=== PATIENT | female | born 1940 | race Caucasian/White ===

== ENCOUNTER → 2017-03-04 | Outpatient (REF) | payer MEDICARE, OTHER ==
[2017-03-04 12:58] LABS: MEAN CORPUSCULAR HEMOGLOBIN 32.2 pg (27.0-33.0); MEAN CORPUSCULAR HGB CONC 34.8 g/dl (32.0-36.5); MEAN CORPUSCULAR VOLUME 92.5 fl (80.0-96.0); RED CELL DISTRIBUTION WIDTH 12.3 % (11.5-14.5); WHITE BLOOD COUNT 5.4 K/mm3 (4.0-10.0)
[2017-03-04 13:25] LABS: ALBUMIN 3.7 GM/DL (3.2-5.2); ALBUMIN/GLOBULIN RATIO 1.16 (1.00-1.93); ALKALINE PHOSPHATASE 74 U/L (45-117); ALT/SGPT 29 U/L (12-78); ANION GAP 8 MEQ/L (8-16); AST/SGOT 21 U/L (15-37); BILIRUBIN,TOTAL 0.7 MG/DL (0.2-1.0); BLOOD UREA NITROGEN 15 MG/DL (7-18); CALCIUM LEVEL 9.2 MG/DL (8.8-10.2); CARBON DIOXIDE LEVEL 28 MEQ/L (21-32); CHLORIDE LEVEL 102 MEQ/L (98-107); CHOLESTEROL LEVEL 201 MG/DL (<200); CREATININE FOR GFR 0.94 MG/DL (0.55-1.02); FREE T4 1.21 NG/DL (0.76-1.46); GLOMERULAR FILTRATION RATE > 60.0 (>39); GLUCOSE, FASTING 90 MG/DL (83-110); POTASSIUM SERUM 4.2 MEQ/L (3.5-5.1); SODIUM LEVEL 138 MEQ/L (136-145); TOTAL PROTEIN 6.9 GM/DL (6.4-8.2); TRIGLYCERIDES LEVEL 69 MG/DL (<150)
== END ==
LOC: M SFHCADAM 09:05
PROVIDERS: ATTEND Family Medicine
DX: I25.10 Atherosclerotic heart disease of native coronary artery without angina pectoris (principal); E78.2 Mixed hyperlipidemia; E03.9 Hypothyroidism, unspecified; E55.9 Vitamin D deficiency, unspecified

== ENCOUNTER → 2018-04-10 | Outpatient (REF) | payer MEDICARE, OTHER ==
[2018-04-10 12:36] LABS: HEMATOCRIT 43.4 % (36.0-47.0); HEMOGLOBIN 14.6 g/dl (12.0-15.5); MEAN CORPUSCULAR HEMOGLOBIN 30.7 pg (27.0-33.0); MEAN CORPUSCULAR HGB CONC 33.6 g/dl (32.0-36.5); MEAN CORPUSCULAR VOLUME 91.4 fl (80.0-96.0); PLATELET COUNT, AUTOMATED 366 10^3/uL (150-450); RED BLOOD COUNT 4.75 10^6/uL (4.00-5.40); RED CELL DISTRIBUTION WIDTH 12.7 % (11.5-14.5); WHITE BLOOD COUNT 6.2 10^3/uL (4.0-10.0)
[2018-04-10 12:52] LABS: ALBUMIN 3.6 GM/DL (3.2-5.2); ALBUMIN/GLOBULIN RATIO 1.24 (1.00-1.93); ALKALINE PHOSPHATASE 63 U/L (45-117); ALT/SGPT 25 U/L (12-78); ANION GAP 8 MEQ/L (8-16); AST/SGOT 20 U/L (7-37); BILIRUBIN,TOTAL 0.6 MG/DL (0.2-1.0); BLOOD UREA NITROGEN 13 MG/DL (7-18); CALCIUM LEVEL 9.1 MG/DL (8.8-10.2); CARBON DIOXIDE LEVEL 30 MEQ/L (21-32); CHLORIDE LEVEL 105 MEQ/L (98-107); CHOLESTEROL LEVEL 222 MG/DL (<200); CHOLESTEROL RISK RATIO 2.551 (<5); CREATININE FOR GFR 0.96 MG/DL (0.55-1.30); FREE T4 1.15 NG/DL (0.76-1.46); GLOMERULAR FILTRATION RATE > 60.0 (>39); GLUCOSE, FASTING 97 MG/DL (70-100); HDL CHOLESTEROL 87 MG/DL (>40); LDL CHOLESTEROL 122.4 MG/DL (<100); NON-HDL-C 135 MG/DL; POTASSIUM SERUM 4.5 MEQ/L (3.5-5.1); SODIUM LEVEL 143 MEQ/L (136-145); TOTAL PROTEIN 6.5 GM/DL (6.4-8.2); TRIGLYCERIDES LEVEL 63 MG/DL (<150)
== END ==
LOC: M SFHCADAM 09:53
DX: I25.10 Atherosclerotic heart disease of native coronary artery without angina pectoris (principal); G25.81 Restless legs syndrome; I10 Essential (primary) hypertension; E03.9 Hypothyroidism, unspecified; E78.2 Mixed hyperlipidemia
CPT/HCPCS: 84443

== ENCOUNTER → 2019-02-24 | Outpatient (REF) | payer MEDICARE, OTHER ==
[2019-02-24 18:22] LABS: HEMOGLOBIN A1c 5.5 %
[2019-02-24 18:29] LABS: ALBUMIN 3.7 GM/DL (3.2-5.2); BILIRUBIN,TOTAL 0.6 MG/DL (0.2-1.0); CALCIUM LEVEL 9.1 MG/DL (8.8-10.2); CHOLESTEROL RISK RATIO 2.687 (<5); CREATININE FOR GFR 1.02 MG/DL (0.55-1.30); FREE T4 1.35 NG/DL (0.76-1.46); GLOMERULAR FILTRATION RATE 56.1 (>39); POTASSIUM SERUM 4.8 MEQ/L (3.5-5.1); THYROID STIMULATING HORMONE 2.11 uIU/ML (0.358-3.740); TOTAL PROTEIN 6.8 GM/DL (6.4-8.2)
[2019-02-24 18:34] LABS: HEMATOCRIT 44.2 % (36.0-47.0); HEMOGLOBIN 14.3 g/dl (12.0-15.5); MEAN CORPUSCULAR HGB CONC 32.4 g/dl (32.0-36.5); MEAN CORPUSCULAR VOLUME 92.7 fl (80.0-96.0); PLATELET COUNT, AUTOMATED 382 10^3/uL (150-450); RED BLOOD COUNT 4.77 10^6/uL (4.00-5.40); WHITE BLOOD COUNT 6.6 10^3/uL (4.0-10.0)
== END ==
LOC: M SFHCADAM 11:31
PROVIDERS: ATTEND Family Medicine
DX: I25.10 Atherosclerotic heart disease of native coronary artery without angina pectoris (principal); G25.81 Restless legs syndrome; I11.9 Hypertensive heart disease without heart failure; E03.9 Hypothyroidism, unspecified; E74.9 Disorder of carbohydrate metabolism, unspecified; E78.2 Mixed hyperlipidemia; E55.9 Vitamin D deficiency, unspecified

== ENCOUNTER → 2021-03-17 | Outpatient (REF) | payer MEDICARE, OTHER ==
[2021-03-17 16:47] LABS: HEMATOCRIT 44.6 % (36.0-47.0); HEMOGLOBIN 14.7 g/dl (12.0-15.5); PLATELET COUNT, AUTOMATED 386 10^3/uL (150-450)
[2021-03-17 17:24] LABS: ALBUMIN 3.8 GM/DL (3.2-5.2); BILIRUBIN,TOTAL 0.6 MG/DL (0.2-1.0); CALCIUM LEVEL 10.4 MG/DL (8.8-10.2); CHOLESTEROL RISK RATIO 3.324 (<5); CREATININE FOR GFR 0.98 MG/DL (0.55-1.30); FREE T4 1.27 NG/DL (0.76-1.46); GLOMERULAR FILTRATION RATE 58.4 (>39); POTASSIUM SERUM 5.2 MEQ/L (3.5-5.1); THYROID STIMULATING HORMONE 2.37 uIU/ML (0.358-3.740)
== END ==
LOC: M SFHCADAM 14:03
PROVIDERS: ATTEND Family Medicine
DX: I25.10 Atherosclerotic heart disease of native coronary artery without angina pectoris (principal); E78.2 Mixed hyperlipidemia; E03.9 Hypothyroidism, unspecified

== ENCOUNTER → 2023-02-18 | Outpatient (REF) | payer MEDICARE, OTHER ==
[2023-02-18 13:07] LABS: HEMATOCRIT 44.6 % (36.0-47.0); HEMOGLOBIN 14.7 g/dl (12.0-15.5); MEAN CORPUSCULAR HEMOGLOBIN 30.4 pg (27.0-33.0); MEAN CORPUSCULAR VOLUME 92.3 fl (80.0-96.0); PLATELET COUNT, AUTOMATED 337 10^3/uL (150-450); RED BLOOD COUNT 4.83 10^6/uL (4.00-5.40); WHITE BLOOD COUNT 10.6 10^3/uL (4.0-10.0)
[2023-02-18 13:42] LABS: ALBUMIN 3.6 G/DL (3.2-5.2); BILIRUBIN,TOTAL 0.9 MG/DL (0.3-1.2); CALCIUM LEVEL 10.3 MG/DL (8.3-10.6); CHOLESTEROL RISK RATIO 3.03 (<5); CREATININE FOR GFR 0.96 MG/DL (0.55-1.30); FREE T4 1.29 NG/DL (0.89-1.76); GLOMERULAR FILTRATION RATE 59.5 (>32); HDL CHOLESTEROL 69.3 MG/DL (>40); LDL CHOLESTEROL 119.3 MG/DL (<100); NON-HDL-C 140.7 MG/DL; POTASSIUM SERUM 4.8 MMOL/L (3.5-5.1); THYROID STIMULATING HORMONE 0.869 uIU/ML (0.55-4.78); TOTAL 25(OH) VITAMIN D 102.2 NG/ML (20.0-100.0); TOTAL PROTEIN 6.7 G/DL (5.7-8.2)
[2023-02-18 13:49] LABS: HEMOGLOBIN A1c 5.5 % (4.0-6.0)
== END ==
LOC: M SFHCADAM 09:55
PROVIDERS: ATTEND Family Medicine
DX: I11.9 Hypertensive heart disease without heart failure (principal); E78.2 Mixed hyperlipidemia; E74.9 Disorder of carbohydrate metabolism, unspecified; E03.9 Hypothyroidism, unspecified; I25.10 Atherosclerotic heart disease of native coronary artery without angina pectoris; E55.9 Vitamin D deficiency, unspecified

== ENCOUNTER → 2023-02-24 | Outpatient (CLI) | payer MEDICARE, OTHER ==
[~2023-02-24] MED LIST: ISOVUE-370 76% 100ML VIAL As Ordered ONE
[2023-02-24 13:52] LABS: BASO # 0.1 10^3/uL (0.0-0.2); BASO % 0.6 % (0.0-1.0); EOS # 0.2 10^3/uL (0.0-0.5); EOS % 1.9 % (0.0-3.0); HEMATOCRIT 41.6 % (36.0-47.0); HEMOGLOBIN 13.9 g/dl (12.0-15.5); LYMPH # 1.4 10^3/uL (1.5-5.0); LYMPH % 14.2 % (24.0-44.0); MEAN CORPUSCULAR HGB CONC 33.4 g/dl (32.0-36.5); MEAN CORPUSCULAR VOLUME 89.7 fl (80.0-96.0); MONO # 0.7 10^3/uL (0.0-0.8); MONO % 7.5 % (2.0-8.0); NEUTROPHILS # 7.3 10^3/uL (1.5-8.5); NEUTROPHILS % 75.4 % (36.0-66.0); PLATELET COUNT, AUTOMATED 306 10^3/uL (150-450); RED BLOOD COUNT 4.64 10^6/uL (4.00-5.40); WHITE BLOOD COUNT 9.7 10^3/uL (4.0-10.0)
[2023-02-24 14:15] LABS: BLOOD UREA NITROGEN 28 MG/DL (9-23); CARBON DIOXIDE LEVEL 28 MMOL/L (20-31); CHLORIDE LEVEL 100 MMOL/L (98-107); CREATININE FOR GFR 0.94 MG/DL (0.55-1.30); GLOMERULAR FILTRATION RATE > 60.0 (>32); GLUCOSE, FASTING 91 MG/DL (74-106); POTASSIUM SERUM 3.9 MMOL/L (3.5-5.1); SODIUM LEVEL 134 MMOL/L (136-145)
== END ==
LOC: M RAD 12:59
PROVIDERS: ATTEND Family Medicine
DX: M79.89 Other specified soft tissue disorders (principal); I16.0 Hypertensive urgency; I51.7 Cardiomegaly; K44.9 Diaphragmatic hernia without obstruction or gangrene; K57.30 Diverticulosis of large intestine without perforation or abscess without bleeding; R91.1 Solitary pulmonary nodule
CPT/HCPCS: 36415; 71275; 80048; 84484; 85025; 85379; 93971; Q9967

== ENCOUNTER → 2024-02-23 | Outpatient (REF) | payer MEDICARE, OTHER ==
[2024-02-23 14:12] LABS: HEMOGLOBIN A1c 5.4 % (4.0-6.0)
[2024-02-23 14:23] LABS: ALBUMIN 3.8 G/DL (3.2-5.2); ALKALINE PHOSPHATASE 94 U/L (46-116); ALT/SGPT 28 U/L (7.0-40); AST/SGOT 19 U/L (<34); BILIRUBIN,TOTAL 0.9 MG/DL (0.3-1.2); BLOOD UREA NITROGEN 29 MG/DL (9-23); CALCIUM LEVEL 10.1 MG/DL (8.3-10.6); CARBON DIOXIDE LEVEL 29 MMOL/L (20-31); CHLORIDE LEVEL 103 MMOL/L (98-107); CHOLESTEROL LEVEL 264 MG/DL (<200); CREATININE FOR GFR 0.95 MG/DL (0.55-1.30); GLOMERULAR FILTRATION RATE > 60.0 (>32); GLUCOSE, FASTING 104 MG/DL (74-106); HDL CHOLESTEROL 73.3 MG/DL (>40); LDL CHOLESTEROL 165.9 MG/DL (<100); NON-HDL-C 190.7 MG/DL; POTASSIUM SERUM 4.7 MMOL/L (3.5-5.1); SODIUM LEVEL 137 MMOL/L (136-145); TOTAL PROTEIN 6.8 G/DL (5.7-8.2); TRIGLYCERIDES LEVEL 124 MG/DL (<150)
[2024-02-23 14:24] LABS: THYROID STIMULATING HORMONE 3.153 uIU/ML (0.55-4.78); TOTAL 25(OH) VITAMIN D 72.2 NG/ML (20.0-100.0)
[2024-02-23 14:25] LABS: FREE T4 1.16 NG/DL (0.89-1.76)
== END ==
LOC: M SFHCADAM 10:29
PROVIDERS: ATTEND Family Medicine
DX: I11.9 Hypertensive heart disease without heart failure (principal); E74.9 Disorder of carbohydrate metabolism, unspecified; E78.2 Mixed hyperlipidemia; E03.9 Hypothyroidism, unspecified; T45.2X1A Poisoning by vitamins, accidental (unintentional), initial encounter

== ENCOUNTER → 2024-03-05 | Outpatient (REF) | payer MEDICARE, OTHER ==
[2024-03-05 19:28] LABS: FOLATE > 24.00 NG/ML (>5.4); VITAMIN B12 LEVEL 1723 PG/ML (211-911)
== END ==
LOC: M SFHCADAM 12:36
PROVIDERS: ATTEND Physician Assistant
DX: F03.90 Unspecified dementia, unspecified severity, without behavioral disturbance, psychotic disturbance, mood disturbance, and anxiety (principal); Z11.3 Encounter for screening for infections with a predominantly sexual mode of transmission; Z72.89 Other problems related to lifestyle

== ENCOUNTER → 2024-03-30 | Outpatient (CLI) | payer MEDICARE, OTHER | LOC: M RAD 11:02 | PROVIDERS: ATTEND Family Medicine | DX: F03.90 Unspecified dementia, unspecified severity, without behavioral disturbance, psychotic disturbance, mood disturbance, and anxiety (principal) ==